=== PATIENT | female | born 1935 | race Caucasian/White ===

== ENCOUNTER → 2017-08-03 | Outpatient (CLI) | payer OTHER | LOC: LAB EV 08:00 | DX: E78.2 Mixed hyperlipidemia (principal); E11.9 Type 2 diabetes mellitus without complications; I10 Essential (primary) hypertension; K21.9 Gastro-esophageal reflux disease without esophagitis | CPT/HCPCS: 87338 ==

== ENCOUNTER → 2021-01-03 | Outpatient (CLI) | payer OTHER | END | disposition home or self-care (01) | LOC: LAB 12:00 → LAB SHORT 12:00 | DX: L97.511 Non-pressure chronic ulcer of other part of right foot limited to breakdown of skin (principal); M79.672 Pain in left foot | CPT/HCPCS: 87070; 87077; 87186; 87205 ==

== ENCOUNTER → 2022-05-08 | Outpatient (CLI) | payer OTHER ==
[2022-05-08 16:11] LABS: BASOPHILS ABSOLUTE AUTO 0.04 K/mm3 (0.00-0.23); BASOPHILS PERCENT AUTO 1 % (0-2); EOSINOPHILS ABSOLUTE AUTO 0.14 K/mm3 (0.00-0.68); EOSINOPHILS PERCENT AUTO 2 % (0-6); Hematocrit 41.8 % (33.0-51.0); Hemoglobin 13.7 g/dL (11.5-16.0); IMMATURE GRAN ABSOLUTE AUTO 0.02 K/mm3 (0.00-0.10); IMMATURE GRAN PERCENT AUTO 0 % (0-1); LYMPHOCYTES ABSOLUTE AUTO 1.64 K/mm3 (0.84-5.20); LYMPHOCYTES PERCENT AUTO 24 % (21-46); MONOCYTES ABSOLUTE AUTO 0.69 K/mm3 (0.16-1.47); MONOCYTES PERCENT AUTO 10 % (4-13); Mean Corpuscular HGB 30.3 pg (26.0-34.0); Mean Corpuscular HGB Conc 32.8 g/dL (31.5-36.5); Mean Corpuscular Volume 93 fL (80-100); Mean Platelet Volume 9.6 fL (9.1-12.4); NEUTROPHILS ABSOLUTE AUTO 4.43 K/mm3 (1.96-9.15); NEUTROPHILS PERCENT AUTO 64 % (41-73); Platelet Count 205 K/mm3 (150-400); RDW Coefficient Variation 12.2 % (11.7-14.2); Red Blood Cell Count 4.52 M/mm3 (3.80-5.20); White Blood Cell Count 6.96 K/mm3 (4.00-11.30)
[2022-05-08 16:20] LABS: Bun/Creatinine Ratio 19.7 (12.0-20.0); Creatinine, Blood 0.76 mg/dL (0.40-1.00); Potassium, Blood 3.8 mmol/L (3.5-5.5)
== END | disposition home or self-care (01) ==
LOC: LAB SHORT 16:07
PROVIDERS: Physician Assistant
DX: I16.0 Hypertensive urgency (principal)
CPT/HCPCS: 80048; 84484; 85025

== ENCOUNTER → 2022-06-24 | Outpatient (CLI) | payer OTHER | END | disposition home or self-care (01) | LOC: LAB SHORT 16:12 → LAB 16:12 | DX: R10.9 Unspecified abdominal pain (principal) | CPT/HCPCS: 87086 ==

== ENCOUNTER 2022-07-30 14:06 | Day surgery (SDC) | payer OTHER ==
[~2022-07-30] VITALS: Ht 170.2 cm; Wt 57.7 kg
[2022-07-30] MEDS ORDERED: METO25 PO (14:32)
[2022-07-30] MEDS ORDERED: OMEP20ER PO (14:32)
[2022-07-30] MEDS ORDERED: METO25 (14:32)
[2022-07-30] MEDS ORDERED: ELIQUIS5 M2 PO (14:47)
[2022-07-30] MEDS ORDERED: CENTRUM SILVER1 EAC2 PO (14:48)
[2022-07-30] MEDS ORDERED: PRAV20 PO (14:48)
[2022-07-30] MEDS ORDERED: Vitamin B-12100 MCG PO (14:48)
[2022-07-30] MEDS ORDERED: CALCIUM CIT 311 EAC7 PO (14:49)
[2022-07-30] MEDS ORDERED: GLUC500 PO (14:50)
[2022-07-30] MEDS ORDERED: GLUCHON PO (14:51)
[2022-07-30] MEDS ORDERED: MOME.1TO (14:53)
[2022-07-30] MEDS ORDERED: MSM500 MG PO (14:54)
--- NOTE | 2022-07-30 15:22 | NUR ---
07/30/22 1521 Michel Ye History, Chart, Medications and Allergies reviewed before start of procedure.MONITOR INTACT WITH CONTINUOUS PULSE OXIMETRY AND INTERMITTENT BP.3-LEAD EKG REVIEWED WITH PHYSICIAN PRIOR TO START OF PROCEDURE.O2 VIA N/C INTACT THROUGHOUT SEDATION/PROCEDURE. See Anesthesia record.
--- NOTE | 2022-07-30 16:21 | NUR ---
REPORT RECEIVED FROM LJ LESTER RN. VSS. PT DENIES PAIN OR DISCOMFORT AT THIS TIME. PT ABLE TO REPOSITION SELF IN BED. PT REQUESTING PO FLUIDS AND TOLERATING THEM WELL.
--- NOTE | 2022-07-30 16:23 | NUR ---
PT RESTING COMFORTABLY IN BED. DAUGHTERS AT BEDSIDE.
--- NOTE | 2022-07-30 17:13 | NUR ---
1907 Patient up to Ambulate independently. Gait steady. Discharge instructions reviewed with patient. Patient verbalizes understanding. Copy given to patient to take home. Patient States Post-Procedure ride home has been arranged. Discharged via wheelchair to private car for ride home. PT BELONGINGS RETURNED TO PT.
== END 2022-07-30 23:17 | disposition home or self-care (01) ==
LOC: ORSCMMR 14:06 → ORD 15:30 → ORSCMMR 23:17
PROVIDERS: Surgery
PROC: 0DBP8ZX Excision of Rectum, Via Natural or Artificial Opening Endoscopic, Diagnostic (ICD-10-PCS; principal; 2022-07-30 15:30)
PROC: 0DBH8ZX Excision of Cecum, Via Natural or Artificial Opening Endoscopic, Diagnostic (ICD-10-PCS; principal; 2022-07-30 15:30)
PROC: 0DBN8ZX Excision of Sigmoid Colon, Via Natural or Artificial Opening Endoscopic, Diagnostic (ICD-10-PCS; principal; 2022-07-30 15:30)
PROC: 0DJ08ZZ Inspection of Upper Intestinal Tract, Via Natural or Artificial Opening Endoscopic (ICD-10-PCS; 2022-07-30 15:30)
DX: K62.5 Hemorrhage of anus and rectum (principal); R97.0 Elevated carcinoembryonic antigen [CEA]; K21.9 Gastro-esophageal reflux disease without esophagitis; R10.31 Right lower quadrant pain; K52.9 Noninfective gastroenteritis and colitis, unspecified; R11.2 Nausea with vomiting, unspecified; R63.4 Abnormal weight loss; I10 Essential (primary) hypertension; I34.0 Nonrheumatic mitral (valve) insufficiency; I48.91 Unspecified atrial fibrillation; K44.9 Diaphragmatic hernia without obstruction or gangrene; Z79.01 Long term (current) use of anticoagulants; Z79.899 Other long term (current) drug therapy
CPT/HCPCS: 88305; J2704; J7120

== ENCOUNTER → 2022-08-11 | Outpatient (CLI) | payer OTHER ==
[~2022-08-11] MED LIST: CALCIUM CIT 311 EAC7 PO; CENTRUM SILVER1 EAC2 PO; ELIQUIS5 M2 PO; GLUC500 PO; GLUCHON PO; METO25; METO25 PO; MOME.1TO; MSM500 MG PO; OMEP20ER PO; PRAV20 PO; Vitamin B-12100 MCG PO
[2022-08-11 13:53] LABS: Campylobacter Sp Not Detected (NOT DETECT)
[2022-08-11 13:54] LABS: Adenovirus F 40/41 Not Detected (NOT DETECT); Astrovirus Not Detected (NOT DETECT); Cryptosporidium Not Detected (NOT DETECT); Cyclospora Cayetanensis Not Detected (NOT DETECT); E. Coli O157 Not Detected (NOT DETECT); Entamoeba Histolytica Not Detected (NOT DETECT); Enteroaggregative E. coli-EAEC Not Detected (NOT DETECT); Enteropathogenic E. coli-EPEC Not Detected (NOT DETECT); Enterotoxigenic E. coli-ETEC Not Detected (NOT DETECT); Giardia Lamblia Not Detected (NOT DETECT); Norovirus GI/GII Not Detected (NOT DETECT); Plesiomonas Shigelloides Not Detected (NOT DETECT); Rotavirus A Not Detected (NOT DETECT); Salmonella Sp Not Detected (NOT DETECT); Sapovirus Not Detected (NOT DETECT); Shiga Toxin-prod E. coli-STEC Not Detected (NOT DETECT); Shigella/Enteroin E. coli-EIEC Not Detected (NOT DETECT); Vibrio Cholerae Not Detected (NOT DETECT); Vibrio Sp Not Detected (NOT DETECT); Yersinia Enterocolitica Not Detected (NOT DETECT)
== END | disposition home or self-care (01) ==
LOC: LAB 07:45 → LAB SHORT 07:45
PROVIDERS: Surgery
DX: K52.9 Noninfective gastroenteritis and colitis, unspecified (principal)
CPT/HCPCS: 87324; 87507

== ENCOUNTER → 2022-08-28 | Outpatient (CLI) | payer OTHER ==
[2022-08-28 13:25] LABS: Source, Urine Clean Catch
[2022-08-28 15:04] LABS: Bacteria Few /hpf; Hyaline Casts 0-2 /lpf (0-2); Red Blood Cells, Urine 0-2 /hpf (0-2); Squamous Epithelial Cells Rare /hpf (Few)
== END | disposition home or self-care (01) ==
LOC: LAB SHORT 12:00
PROVIDERS: Family Medicine
DX: R30.0 Dysuria (principal)
CPT/HCPCS: 81015; 87086

== ENCOUNTER 2022-10-09 06:46 | Day surgery (SDC) | payer OTHER ==
[~2022-10-09] VITALS: Ht 172.7 cm; Wt 59.6 kg
--- NOTE | 2022-10-09 07:14 | NUR ---
10/09/22 0714 Domonique Leo AT 0712 PLEPATTIET AT 0713
[2022-10-09 08:27] VITALS: BP 146/71
== END 2022-10-09 08:48 | disposition home or self-care (01) ==
LOC: ORSCSDS 06:46
PROVIDERS: Ophthalmology
PROC: 08DK3ZZ Extraction of Left Lens, Percutaneous Approach (ICD-10-PCS; principal; 2022-10-09 08:00)
DX: H25.12 Age-related nuclear cataract, left eye (principal); I48.91 Unspecified atrial fibrillation; I10 Essential (primary) hypertension; K21.9 Gastro-esophageal reflux disease without esophagitis; Z79.899 Other long term (current) drug therapy
CPT/HCPCS: J2001; J2250; J3010; J3301; J7040; V2632

== ENCOUNTER 2022-10-16 09:46 | Day surgery (SDC) | payer OTHER ==
[~2022-10-16] VITALS: Ht 172.7 cm; Wt 59.8 kg
[2022-10-16] MEDS ORDERED: SACC250C PO (10:01)
--- NOTE | 2022-10-16 10:08 | NUR ---
10/16/22 1008 SAMMY FITZPATRICK TETRACAINE DROP INSTILLED AT 1003 PLEDGETT AT 1004
[2022-10-16 11:00] VITALS: BP 149/62
== END 2022-10-16 11:17 | disposition home or self-care (01) ==
LOC: ORSCSDS 09:46
PROVIDERS: Ophthalmology
PROC: 08DJ3ZZ Extraction of Right Lens, Percutaneous Approach (ICD-10-PCS; principal; 2022-10-16 11:00)
DX: H25.11 Age-related nuclear cataract, right eye (principal); Z96.1 Presence of intraocular lens; I48.91 Unspecified atrial fibrillation; I10 Essential (primary) hypertension; Z79.01 Long term (current) use of anticoagulants; Z79.899 Other long term (current) drug therapy
CPT/HCPCS: J3301; J7040; V2632

== ENCOUNTER → 2023-01-03 | Outpatient (CLI) | payer OTHER | END | disposition home or self-care (01) | LOC: LAB 16:26 | DX: M10.9 Gout, unspecified (principal); R31.9 Hematuria, unspecified ==

== ENCOUNTER → 2024-05-14 | Outpatient (CLI) | payer SELFPAY ==
[~2024-05-14] MED LIST changes: +SACC250C PO
== END | disposition home or self-care (01) ==
LOC: LAB SHORT 10:30 → LAB 10:30
DX: N39.0 Urinary tract infection, site not specified (principal)
CPT/HCPCS: 87086; 87147